=== PATIENT | female | born 1950 | race Two or more races ===

== ENCOUNTER 2016-05-03 10:03 | Emergency (ER) | payer OTHER ==
--- NOTE | 2016-05-03 10:15 | ED Physician Documentation ---
Lower Extremity Problem - HISTORIAN Historian: patient - HPI Stated Complaint: knee pain Chief Complaint: Lower Extremity Problem Additional Information: 65 y/o F presents with B/L knee pain. Patient just moved from [place] and is living with her son here in [place]. Has not been able to get a PCP yet and ran out of pain Rx two days ago. Says knees frequently swell and she has sciatic nerve pain. Pain is 8/10. Worsened by exercise and walking. Diagnosed with OA many years ago. Worsening over past 5 years. Takes Tramadol 50 once daily and hydrocodone 5mg prn (usually twice per day). Never had knee injections done before. Interested in getting knee injections today. Denies fever/chills, new rash, redness or warmth to the joints, or injury. Location of Injury: R knee, L knee Onset: other (chronic) Timing: still present Duration: constant Recent Injury: No Severity: severe Quality: pain, swelling Exacerbated By: walking, movement Relieved By: other (medications) Associated Symptoms: denies: chest pain, shortness of breath - ROS CONST: no problems. denies: recent illness, sweating, weakness, chills MS/SKIN/LYMPH: denies: calf pain, leg swelling - PAST HX Past History: none, other (depression) Surgeries/Procedures: none Immunizations: referred to PCP Allergies/Adverse Reactions: Allergies Allergy/AdvReac Type Severity Reaction Status Date / Time cyclobenzaprine HCl Allergy Verified 05/03/16 10:17 [From Flexeril] fluoxetine HCl [From Prozac] Allergy Verified 05/03/16 10:17 Home Medications: Ambulatory Orders Medication Instructions Recorded Clonazepam [Klonopin] 0.5 mg PO BID 05/03/16 HYDROcodone /APAP 5/325 [[place] 1 each PO PRN PRN 05/03/16 5/325] Hydrocodone/Acetaminophen 1 each PO BID PRN #30 tablet 05/03/16 [Hydrocodon-Acetaminophen 5-325] Tramadol HCl [Ultram] 50 mg PO DAILY 05/03/16 traMADol HCL [Ultram] 50 mg PO Q6H PRN #30 tablet 05/03/16 - SOCIAL HX Smoking History: non-smoker Alcohol Use: none - FAMILY HX Family History: none - VITAL SIGNS Vital Signs: Vital Signs Temp Pulse Resp BP Pulse Ox 72 18 118/68 97 05/03/16 11:30 05/03/16 11:30 05/03/16 11:30 05/03/16 11:30 Progress - Progress Progress: 11:10 Patient was informed of risks, benefits, and alternatives of steroid injections in the knee. Verbally consented to procedure. Right Knee was prepped with betadine and draped in a sterile fashion. Medicine was mixed under sterile fashion. Skin was injected with 1% lidocaine to numb surface. Steroid mixture was then injected into knee. This procedure was repeated on the L knee. ED Results Lab/Radiology - Radiology Radiology Impressions: Report Submission Date: May 03, 2016 10:51:47 AM CDT Patient Study Name: BRIAN KHAN Date: May 03, 2016 10:37:07 AM CDT Modality Type: CR Gender: F Description: LOWER EXTREMITY : 54 Institution: [facility] Physician YESSENIA GUERRA - 2 views of the bilateral knees Clinical history: Bilateral knee pain Findings: No acute fracture dislocation is identified. There is mild tricompartment osteoarthritis bilaterally. There is no significant joint effusion. Impression: Mild bilateral knee osteoarthritis. Electronically signed on May 03, 2016 10:51:47 AM CDT by: Adiel Esqueda - Orders Orders: ED Orders Category Date Time Status BILAT KNEES 3 VIEW [RAD] Stat Exams 05/03/16 Taken Bupivacaine HCl/Pf [Marcaine 0.25% Vial] Med 05/03/16 10:52 Discontinued 25 mg IJ NOW ONE Bupivacaine HCl/Pf [Marcaine 0.25% Vial] Med 05/03/16 10:53 Discontinued 25 mg IV .STK-MED ONE Dexamethasone Sod Phosphate [Decadron] Med 05/03/16 10:54 Discontinued 8 mg .ROUTE .STK-MED ONE Dexamethasone Sod Phosphate [Decadron] Med 05/03/16 10:52 Discontinued 8 mg IM NOW ONE Lidocaine 1% 5ml(IM or SUTURE) [Xylocaine] Med 05/03/16 10:53 Discontinued 100 mg .ROUTE .STK-MED ONE Lidocaine 1% 5ml(IM or SUTURE) [Xylocaine] Med 05/03/16 10:50 Discontinued 50 mg IJ NOW ONE methylPREDNISolone ACETATE [Depo-Medrol] Med 05/03/16 10:53 Discontinued 160 mg IM .STK-MED ONE methylPREDNISolone ACETATE [Depo-Medrol] Med 05/03/16 10:52 Discontinued 160 mg IM NOW ONE Lower Extremity Problem - EXAM General Appearance: mild distress Knees: bilateral: normal range of motion, no evidence of injury, pain, other ( crepitus of the knee joint on passive ROM with significant clicking and popping) , N/A: non-tender (Tender to palpation along joint line B/L ) Neuro/Tendon: normal sensation RESPIRATORY: no resp distress, chest non-tender, breath sounds normal CVS: reg rate & rhythm, heart sounds normal JOINT: antalgic gait VASCULAR: no vascular compromise NEURO/PSYCH: oriented X3, motor nml, sensation nml, mood/affect nml, cognition normal Discharge Clincal Impression: Osteoarthritis of knees, bilateral Prescriptions: Hydrocodone/Acetaminophen [Hydrocodon-Acetaminophen 5-325] 1 each PO BID PRN # 30 tablet PRN Reason: Pain traMADol HCL [Ultram] 50 mg PO Q6H PRN #30 tablet PRN Reason: Pain Referrals: Primary Doctor,No [Primary Care Provider] - 2 Days Additional Instructions: Continue taking present medications as prescribed. Call and make an appointment with primary care doctor. Home Medications: Ambulatory Orders Clonazepam [Klonopin] 0.5 mg PO BID 05/03/16 HYDROcodone /APAP 5/325 [[place] 5/325] 1 each PO PRN PRN 05/03/16 Hydrocodone/Acetaminophen [Hydrocodon-Acetaminophen 5-325] 1 each PO BID PRN # 30 tablet 05/03/16 Tramadol HCl [Ultram] 50 mg PO DAILY 05/03/16 traMADol HCL [Ultram] 50 mg PO Q6H PRN #30 tablet 05/03/16 Condition: Stable Disposition: 01 HOME, SELF-CARE Decision to Admit: NO Date of Decison to Admit: 05/03/16 Decision Time: 11:16
[2016-05-03] MEDS ORDERED: Lidocaine 1% 5ml(IM or SUTURE)(PAIN CLINIC) IJ ONE (10:50)
[2016-05-03] MEDS ORDERED: methylPREDNISolone ACETATE 80 MG/ML VIAL IM ONE ×2 (10:52→10:53)
[2016-05-03] MEDS ORDERED: BUPIVACAINE HCL/PF 2.5 MG/ML 10ML VIAL IJ ONE (10:52)
[2016-05-03] MEDS ORDERED: DEXAMETHASONE SOD PHOS 4 MG/ML VIAL IM ONE (10:52)
[2016-05-03] MEDS ORDERED: Lidocaine 1% 5ml(IM or SUTURE)(PAIN CLINIC) ONE (10:53)
[2016-05-03] MEDS ORDERED: BUPIVACAINE HCL/PF 2.5 MG/ML 10ML VIAL IV ONE (10:53)
[2016-05-03] MEDS ORDERED: DEXAMETHASONE SOD PHOS 4 MG/ML VIAL ONE (10:54)
[2016-05-03 11:31] VITALS: BP 118/68
--- NOTE | 2016-05-03 14:01 | Diagnostic Imaging Report ---
[facility] [address] [facility].[address] [address] Report Submission Date: May 03, 2016 10:51:47 AM CDT Patient Study Name: BRIAN KAHN Date: May 03, 2016 10:37:07 AM CDT Modality Type: CR Gender: F Description: LOWER EXTREMITY : 54 Institution: [facility] Physician YESSENIA GUERRA - ER 2 views of the bilateral knees Clinical history: Bilateral knee pain Findings: No acute fracture dislocation is identified. There is mild tricompartment osteoarthritis bilaterally. There is no significant joint effusion. Impression: Mild bilateral knee osteoarthritis. Electronically signed on May 03, 2016 10:51:47 AM CDT by: Adiel GUTIERREZ
== END 2016-05-03 11:30 | disposition home or self-care (01) ==
LOC: ED 10:03
DX: M17.0 Bilateral primary osteoarthritis of knee (principal)
CPT/HCPCS: 73562; J1040; J1100; J3490; 20610; 96372; 99284

== ENCOUNTER 2017-06-19 09:25 | Emergency (ER) | payer OTHER ==
--- NOTE | 2017-06-19 09:50 | ED Physician Documentation ---
Fall - HISTORIAN Historian: patient - HPI Stated Complaint: fall Chief Complaint: Fall Additional Information: Tripped and fell yesterday at 89 at home. Landed on floor and now has sore left ribs. Knees are more painful than usual. She has OA godwin knees; appointment with orthopedics for same in 5 days. She is out of tramadol and it is not clear if she took tramadol since the fall - says it didn't help. Refuses injections. Says "it is over for me," because she thinks she needs knee replacements. Associated Symptoms:: no loss of consciousness - ROS CONST: no problems - PAST HX Past History: other (OA knees) Allergies/Adverse Reactions: Allergies Allergy/AdvReac Type Severity Reaction Status Date / Time No Known Allergies Allergy Unverified 06/19/17 09:48 Home Medications: Ambulatory Orders Medication Instructions Recorded Cholesterol 06/19/17 Ciprofloxacin HCl [Cipro] 250 mg PO 06/19/17 FLUoxetine HCL [Prozac] 10 mg PO QD 06/19/17 Hydrocodone/Acetaminophen [[place] 1 tab PO Q4H PRN #15 06/19/17 5-325 Tablet] Oxybutynin Chloride [Ditropan] 5 mg PO 06/19/17 Oxybutynin Chloride [Ditropan] 5 mg PO DAILY #30 tablet 06/19/17 - SOCIAL HX Smoking History: non-smoker - FAMILY HX Family History: no significant history - VITAL SIGNS Vital Signs: Vital Signs Temp Pulse Resp BP Pulse Ox 98.4 F 90 16 104/71 95 06/19/17 09:26 06/19/17 09:26 06/19/17 09:26 06/19/17 09:26 06/19/17 09:26 - REVIEWED ASSESSMENTS Nursing Assessment Reviewed: Yes Vitals Reviewed: Yes Progress - Progress Progress: Report Submission Date: June 19, 2017 10:31:55 AM CDT Patient Study Name: BRIAN KHAN Date: June 19, 2017 9:58:41 AM CDT Modality Type: DX Gender: F Description: CHEST : 54 Institution: [facility] Physician: ALYSSA DODGE - CALVIN Examination: Plain film left ribs History: FELL; PAIN IN LEFT MID RIB AREA X 1 DAY (Hx) Findings: 4 views of the left ribs demonstrates normal cortical margins. No fracture or dislocation. Underlying parenchymal without abnormality. 4th rib fracture. Articular degenerative changes. Impression: No acute rib fracture/abnormality. Electronically signed on June 19, 2017 10:31:55 AM CDT by: Garcia Elizabeth Patient Study Name: BRIAN KHAN Date: June 19, 2017 10:14:22 AM CDT Modality Type: DX Gender: F Description: LOWER EXTREMITY : 54 Institution: [facility] Physician: ALYSSA DODGE - Examination: Plain film knees History: PT FELL YESTERDAY AND C/O LEFT KNEE PAIN (Hx) Findings: 3 views of the right and left knees demonstrates osteopenia. Tibial spine, articular, and patellar spurring. Joint space narrowing. No fracture. No dislocation. No joint effusion. No posterior soft tissue irregularity. Impression: Osteopenia and degenerative changes. No acute appearing osseous abnormality Electronically signed on June 19, 2017 10:53:14 AM CDT by: Garcia Elizabeth ED Results Lab/Radiology - Orders Orders: ED Orders Category Date Time Status BILAT KNEES 3 VIEW [RAD] Stat Exams 06/19/17 Ordered RIBS UNILATERAL W/ PA CHEST [RAD] Stat Exams 06/19/17 Ordered Fall Physical Exam - Physical Exam General Appearance: alert, mild distress, moderate distress Head: no obvious injury Neck: painless ROM Eye: lids & conjunct. nml ENT: nml external inspection Resp/CVS: breath sounds nml, heart sounds nml Neuro: CN's nml as tested, sensation nml, motor nml Skin: color nml Back: normal inspection (fluid movements w/o pain) Extremities: pelvis stable, other (stance good. antalgic gait 2/2 knee pain. ) Joint: antalgic gait, painful Discharge Clincal Impression: Fall Qualifiers: Encounter type: initial encounter Qualified Code(s): W19.XXXA - Unspecified fall, initial encounter Knee pain, bilateral Qualifiers: Chronicity: chronic Qualified Code(s): M25.561 - Pain in right knee; M25.562 - Pain in left knee; M25.562 - Pain in left knee; G89.29 - Other chronic pain; G89.29 - Other chronic pain Referrals: Primary Doctor,No [Primary Care Provider] - 2 Days Condition: Fair Disposition: 01 HOME, SELF-CARE Decision to Admit: NO Decision Time: 11:05
--- NOTE | 2017-06-19 11:12 | Diagnostic Imaging Report ---
ALYSSA DODGE [facility] [address] [facility] [address] [address] Report Submission Date: June 19, 2017 10:31:55 AM CDT Patient Study Name: BRIAN KHAN Date: June 19, 2017 9:58:41 AM CDT Modality Type: DX Gender: F Description: CHEST : 54 Institution: [facility] Physician: ALYSSA DODGE Examination: Plain film left ribs History: FELL; PAIN IN LEFT MID RIB AREA X 1 DAY (Hx) Findings: 4 views of the left ribs demonstrates normal cortical margins. No fracture or dislocation. Underlying parenchymal without abnormality. 4th rib fracture. Articular degenerative changes. Impression: No acute rib fracture/abnormality. Electronically signed on June 19, 2017 10:31:55 AM CDT by: Garcia GUTIERREZ
--- NOTE | 2017-06-19 11:13 | Diagnostic Imaging Report ---
ALYSSA DODGE [facility] [address] [facility] [address] [place] [address]. [id number] Report Submission Date: June 19, 2017 10:53:14 AM CDT Patient Study Name: BRIAN KHAN Date: June 19, 2017 10:14:22 AM CDT Modality Type: DX Gender: F Description: LOWER EXTREMITY : 54 Institution: [facility] Physician: ALYSSA DODGE Examination: Plain film knees History: PT FELL YESTERDAY AND C/O LEFT KNEE PAIN (Hx) Findings: 3 views of the right and left knees demonstrates osteopenia. Tibial spine, articular, and patellar spurring. Joint space narrowing. No fracture. No dislocation. No joint effusion. No posterior soft tissue irregularity. Impression: Osteopenia and degenerative changes. No acute appearing osseous abnormality Electronically signed on June 19, 2017 10:53:14 AM CDT by: Garcia GUTIERREZ
[2017-06-19 11:19] VITALS: BP 110/74
== END 2017-06-19 11:17 | disposition home or self-care (01) ==
LOC: ED 09:25
DX: M25.561 Pain in right knee (principal); M25.562 Pain in left knee; G89.29 Other chronic pain; W19.XXXA Unspecified fall, initial encounter; Y92.008 Other place in unspecified non-institutional (private) residence as the place of occurrence of the external cause
CPT/HCPCS: 71101; 99284

== ENCOUNTER 2017-07-17 10:36 | Emergency (ER) | payer OTHER ==
--- NOTE | 2017-07-17 11:01 | ED Physician Documentation ---
General Adult - HISTORIAN Historian: patient - HPI Stated Complaint: back & knee pain Chief Complaint: General Adult Additional Information: Godwni knee and back pain. Fell yesterday and landed on knees. Tylenol and naproxen not helping with pain. [place] snot seen orthopedics. - ROS CONST: no problems - PAST HX Past History: other (depression) Allergies/Adverse Reactions: Allergies Allergy/AdvReac Type Severity Reaction Status Date / Time No Known Allergies Allergy Verified 07/17/17 10:59 Home Medications: Ambulatory Orders Medication Instructions Recorded Cholesterol 06/19/17 FLUoxetine HCL [Prozac] 10 mg PO QD 06/19/17 Hydrocodone/Acetaminophen [[place] 1 tab PO Q4H PRN #15 06/19/17 5-325 Tablet] Oxybutynin Chloride [Ditropan] 5 mg PO DAILY #30 tablet 06/19/17 Hydrocodone/Acetaminophen [[place] 1 tab PO Q4H PRN #15 07/17/17 5-325 Tablet] - SOCIAL HX Smoking History: non-smoker - FAMILY HX Family History: No - VITAL SIGNS Vital Signs: Vital Signs Temp Pulse Resp BP Pulse Ox 98.1 F 88 16 121/82 98 07/17/17 10:52 07/17/17 10:52 07/17/17 10:52 07/17/17 10:52 07/17/17 10:52 - REVIEWED ASSESSMENTS Nursing Assessment Reviewed: Yes Vitals Reviewed: Yes Progress - Progress Progress: Patient Study Name: BRIAN KHAN Date: Jul 17, 2017 10:57:36 AM CDT Modality Type: DX Gender: F Description: LOWER EXTREMITY : 54 Institution: [facility] Physician: ALYSSA DODGE - Examination: Plain film knees History: FELL X 1 DAY AGO (Hx) Findings: 3 views of the right and left knees demonstrates osteopenia. Articular degenerative changes. No fracture. No dislocation. No joint effusion. No soft tissue irregularity. Impression: Osteopenia and degenerative changes. No acute appearing osseous abnormality. Electronically signed on Jul 17, 2017 11:46:40 AM CDT by: Garcia Elizabeth Patient Study Name: BRIAN KHAN Date: Jul 17, 2017 10:55:28 AM CDT Modality Type: DX Gender: F Description: SPINE : 54 Institution: [facility] Physician: ALYSSA DODGE - CALVIN Examination: Plain film lumbar spine History: FELL X 1 DAY AGO (Hx) Findings: 3 views of the lumbar spine demonstrates osteopenia. Degenerative changes. Curvature to the right. No anterior compression. No soft tissue abnormalities. Impression: Curvature and degenerative changes. No compression deformity. Electronically signed on Jul 17, 2017 11:44:48 AM CDT by: Garcia Elizabeth ED Results Lab/Radiology - Orders Orders: ED Orders Category Date Time Status BILAT KNEES 3 VIEW [RAD] Stat Exams 07/17/17 Ordered LUMBAR SPINE XR 2 OR 3 VIEWS [L SPINE 2 OR 3 VIEWS] [ Exams 07/17/17 Ordered RAD] Stat General Adult Physical Exam - PHYSICAL EXAM GENERAL APPEARANCE: moderate distress (very sad) EENT: eye inspection normal, ENT inspection normal NECK: normal inspection RESPIRATORY: no resp distress, breath sounds normal CVS: reg rate & rhythm ABDOMEN: soft, normal bowel sounds BACK: no CVA tenderness, other (no vertebral tenderness, tender left lumbar paraspinous muscles) SKIN: warm/dry, normal color EXTREMITIES: other (OA changes godwin knees; old scab left knee) NEURO: CN's nml as tested, sensation nml Discharge Clincal Impression: Knee pain, chronic Qualifiers: Laterality: bilateral Qualified Code(s): M25.561 - Pain in right knee; M25.562 - Pain in left knee; M25.562 - Pain in left knee; G89.29 - Other chronic pain; G89.29 - Other chronic pain Back pain Qualifiers: Back pain location: low back pain Chronicity: chronic Back pain laterality: left Sciatica presence: without sciatica Qualified Code(s): M54.5 - Low back pain; G89.29 - Other chronic pain; G89.29 - Other chronic pain Prescriptions: Hydrocodone/Acetaminophen [[place] 5-325 Tablet] 1 tab PO Q4H PRN #15 PRN Reason: Pain Referrals: Primary Doctor,No [Primary Care Provider] - 2 Days Condition: Good Disposition: 01 HOME, SELF-CARE Decision to Admit: NO Decision Time: 12:00
[2017-07-17] MEDS ORDERED: KETOROLAC TROMETHAMINE 60 MG/2 ML VIAL IM ONE (11:22)
[2017-07-17 12:15] VITALS: BP 118/69
--- NOTE | 2017-07-17 13:54 | Diagnostic Imaging Report ---
ALYSSA DODGE [facility] [address] [facility] [address] [address] Report Submission Date: Jul 17, 2017 11:46:40 AM CDT Patient Study Name: BRIAN KHAN Date: Jul 17, 2017 10:57:36 AM CDT Modality Type: DX Gender: F Description: LOWER EXTREMITY : 54 Institution: [facility] Physician: ALYSSA DODGE Examination: Plain film knees History: FELL X 1 DAY AGO (Hx) Findings: 3 views of the right and left knees demonstrates osteopenia. Articular degenerative changes. No fracture. No dislocation. No joint effusion. No soft tissue irregularity. Impression: Osteopenia and degenerative changes. No acute appearing osseous abnormality. Electronically signed on Jul 17, 2017 11:46:40 AM CDT by: Garcia GUTIERREZ
--- NOTE | 2017-07-17 13:56 | Diagnostic Imaging Report ---
ALYSSA DODGE [facility] [address] [facility] [address] [address] Report Submission Date: Jul 17, 2017 11:44:48 AM CDT Patient Study Name: BRIAN KHAN Date: Jul 17, 2017 10:55:28 AM CDT Modality Type: DX Gender: F Description: SPINE : 54 Institution: [facility] Physician: ALYSSA DODGE Examination: Plain film lumbar spine History: FELL X 1 DAY AGO (Hx) Findings: 3 views of the lumbar spine demonstrates osteopenia. Degenerative changes. Curvature to the right. No anterior compression. No soft tissue abnormalities. Impression: Curvature and degenerative changes. No compression deformity. Electronically signed on Jul 17, 2017 11:44:48 AM CDT by: Garcia GUTIERREZ
== END 2017-07-17 12:13 | disposition home or self-care (01) ==
LOC: ED 10:36
DX: M25.561 Pain in right knee (principal); M25.562 Pain in left knee; G89.29 Other chronic pain; M54.5 Low back pain; W19.XXXA Unspecified fall, initial encounter; Y92.9 Unspecified place or not applicable; Y93.9 Activity, unspecified; Y99.9 Unspecified external cause status
CPT/HCPCS: 72100; 73562; J1885; 96372; 99284